=== PATIENT | male | born 1990 ===

== ENCOUNTER 2018-06-06 07:12 | Emergency (ER) | payer OTHER ==
[2018-06-06 07:27] VITALS: O2SAT 99
--- NOTE | 2018-06-06 08:22 | ED PDOC ---
HPI: Back Time Seen by Provider: 06/06/18 07:18 Chief Complaint (Nursing): Back Pain Chief Complaint (Provider): Back pain History Per: Patient History/Exam Limitations: no limitations Onset/Duration Of Symptoms: Days (1) Current Symptoms Are (Timing): Still Present Quality Of Discomfort: "Pain" Associated Symptoms: None Exacerbating Factor(s): Turning, Movement Additional History Per: Patient Additional Complaint(s): 28yo male, comes to ER for evaluation of back pain since last night. Patient states he was laying down in bed and watching TV when he noticed the back pain; patient denies any injury or trauma. He also denies any weakness, numbness, tingling, bowel or bladder dysfunction. He has no other medical complaints. PMD: None provided Past Medical History Reviewed: Historical Data, Nursing Documentation, Vital Signs Vital Signs: Last Vital Signs Temp 97.6 F 06/06/18 07:27 Pulse 62 06/06/18 07:27 Resp 17 06/06/18 07:27 BP 128/71 06/06/18 07:27 Pulse Ox 99 06/06/18 07:27 - Medical History PMH: No Chronic Diseases - Surgical History Surgical History: No Surg Hx - Family History Family History: States: No Known Family Hx - Home Medications Home Medications: Ambulatory Orders Medication Instructions Recorded Cyclobenzaprine [Cyclobenzaprine 10 mg PO TID PRN #15 tab 06/06/18 HCl] Naproxen [Naprosyn] 500 mg PO BID PRN #15 tablet 06/06/18 oxyCODONE/Acetaminophen [Percocet 1 tab PO Q6H PRN #15 tab 06/06/18 5/325 mg Tab] - Allergies Allergies/Adverse Reactions: Allergies Allergy/AdvReac Type Severity Reaction Status Date / Time No Known Allergies Allergy Verified 06/06/18 07:32 Review of Systems ROS Statement: Except As Marked, All Systems Reviewed And Found Negative Genitourinary Male: Negative for: Incontinence Musculoskeletal: Positive for: Back Pain Neurological: Negative for: Weakness, Numbness Physical Exam - Reviewed Nursing Documentation Reviewed: Yes Vital Signs Reviewed: Yes - Physical Exam Appears: Positive for: Non-toxic, In Acute Distress (moderate) Head Exam: Positive for: ATRAUMATIC, NORMAL INSPECTION, NORMOCEPHALIC Skin: Positive for: Normal Color, Warm, DRY Eye Exam: Positive for: Normal appearance Neck: Positive for: Normal, Painless ROM, Supple Cardiovascular/Chest: Positive for: Regular Rate, Rhythm Respiratory: Positive for: CNT, Normal Breath Sounds Gastrointestinal/Abdominal: Positive for: Normal Exam, Soft Back: Positive for: Normal Inspection, Other (patient reports back pain, no tenderness noted on palpation). Negative for: L CVA Tenderness, R CVA Tenderness, Vertebral Tenderness Extremity: Positive for: Normal ROM. Negative for: Tenderness, Pedal Edema Neurologic/Psych: Positive for: Alert, Oriented. Negative for: Motor/Sensory Deficits - ECG O2 Sat by Pulse Oximetry: 99 (RA) Pulse Ox Interpretation: Normal Medical Decision Making Medical Decision Making: Impression: Back pain Plan: * XR Lumbar spine * Toradol 30mg IM * Flexeril 10mg PO Time: 0916 XR Lumbar Spine FINDINGS: BONES: Normal alignment. No listhesis. No fracture. DISC SPACES: Unremarkable. OTHER FINDINGS: None. IMPRESSION: Unremarkable radiographs of the lumbar spine. Scribe Attestation: Documented by Latosha Cortes, acting as a scribe for Lisa Medellin MD. Provider Scribe Attestation: All medical record entries made by the Scribe were at my direction and personally dictated by me. I have reviewed the chart and agree that the record accurately reflects my personal performance of the history, physical exam, medical decision making, and the department course for this patient. I have also personally directed, reviewed, and agree with the discharge instructions and disposition. Disposition - Clinical Impression Clinical Impression: Low back pain - Disposition Referrals: [facility] [Outside] Disposition Time: 10:13 Condition: IMPROVED Prescriptions: Cyclobenzaprine [Cyclobenzaprine HCl] 10 mg PO TID PRN #15 tab PRN Reason: Pain Naproxen [Naprosyn] 500 mg PO BID PRN #15 tablet PRN Reason: Pain, Moderate (4-7) oxyCODONE/Acetaminophen [Percocet 5/325 mg Tab] 1 tab PO Q6H PRN #15 tab PRN Reason: Pain, Severe (8-10) Instructions: Low Back Pain in Adults Forms: [employer] (Macedonian) Print Language: LIBYAN
--- NOTE | 2018-06-06 08:49 | RAD ---
Date of service: 06/06/2018 PROCEDURE: Radiographs of the Lumbar Spine. HISTORY: Low back pain COMPARISON: No prior. FINDINGS: BONES: Normal alignment. No listhesis. No fracture. DISC SPACES: Unremarkable. OTHER FINDINGS: None. IMPRESSION: Unremarkable radiographs of the lumbar spine.
[2018-06-06] MEDS ORDERED: Oxycodone/Acetaminophen 5/325 mg Tab PO STA (10:12)
[2018-06-06] MEDS ORDERED: Oxycodone/Acetaminophen 5/325 mg Tab ONE (10:29)
[2018-06-06] MEDS ORDERED: Lidocaine 5% Patch TD STA (11:00)
[2018-06-06] MEDS ORDERED: Lidocaine 5% Patch TD ONE (11:07)
[2018-06-06 12:26] VITALS: BP 127/71; PULSE 73; RESP 16; TEMP 98.3
== END 2018-06-06 12:25 | disposition home or self-care (01) ==
LOC: H.ER 07:12
DX: M54.5 Low back pain (principal)
CPT/HCPCS: 72114; 96372; 99283; J1885